=== PATIENT | male | born 1985 | race Caucasian/White ===

== ENCOUNTER 2021-05-03 14:23 | Inpatient (IN) | payer OTHER ==
[~2021-05-03] VITALS: Ht 167.6 cm; Wt 63.6 kg
[2021-05-03 16:59] LABS: BASOPHILS % (AUTO) 0.7 % (0.0-2.0); EOSINOPHILS % (AUTO) 1.1 % (1.0-6.0); HEMATOCRIT 41.6 % (41-53); HEMOGLOBIN 14.2 g/dL (13.5-17.5); LYMPHOCYTES # (AUTO) 1.8 K/uL (1.0-4.8); LYMPHOCYTES % (AUTO) 20.3 % (22.0-44.0); MEAN CORPUSCULAR HEMOGLOBIN 30.6 pg (26.0-34.0); MEAN CORPUSCULAR HGB CONC 34.1 G/dL (31.0-37.0); MEAN CORPUSCULAR VOLUME 90 fL (80-100); MONOCYTES # (AUTO) 0.4 K/uL (0.1-1.0); MONOCYTES % (AUTO) 5.1 % (2.0-9.0); NEUTROPHILS # (AUTO) 6.4 K/uL (1.8-7.7); NEUTROPHILS % (AUTO) 72.8 % (40.0-70.0); PLATELET COUNT (AUTO) 177 K/uL (150-450); RED BLOOD CELL COUNT(AUTO) 4.63 MIL/uL (4.50-5.90); RED CELL DISTRIBUTION WIDTH 13.6 % (11.5-14.5)
[2021-05-03 17:11] LABS: ANION GAP 8 mmol/L (8-16); CALCIUM, TOTAL 9.2 mg/dL (8.8-10.5); CARBON DIOXIDE 32 mmol/L (22-29); CHLORIDE 109 mmol/L (98-107); CREATININE 1.02 mg/dL (0.60-1.30); GLOMERULAR FILTR. RATE CALC > 60 mL/min (>60); GLUCOSE,RANDOM 89 mg/dL (70-110); POTASSIUM 4.2 mmol/L (3.5-5.1); SODIUM SERUM 149 mmol/L (136-145); UREA NITROGEN, BLOOD 9 mg/dL (7-18)
[2021-05-03 17:25] LABS: ALANINE AMINOTRANSFERASE 30 U/L (12-78); ALBUMIN 4.1 g/dL (3.4-5.0); ALKALINE PHOSPHATASE 65 U/L (46-116); ASPARTATE AMINOTRANSFERASE 21 U/L (15-37); BILIRUBIN,TOTAL 0.6 mg/dL (0.1-1.0); TOTAL PROTEIN, SERUM 7.5 g/dL (6.4-8.2)
[2021-05-03 17:41] LABS: COVID AG,FIA SOURCE NASOPHARYNGEAL
[2021-05-03] MEDS ORDERED: INSULIN LISPRO 100 UNITS/ML SQ PRN (18:15)
[2021-05-03] MEDS ORDERED: ACETAMINOPHEN 325 MG TABLET PO PRN (18:15)
[2021-05-03] MEDS ORDERED: ONDANSETRON HCL 4 MG/2 ML VIAL IVP PRN (18:15)
[2021-05-03] MEDS ORDERED: SODIUM CHLORIDE 0.45% 1,000 ML IV ONE (18:15)
[2021-05-03] MEDS ORDERED: DEXTROSE 50%-WATER 25 GM/50 ML SYRINGE IVP PRN (18:15)
[2021-05-03] MEDS ORDERED: MAGNESIUM HYDROXIDE SUSPENSION 30 ML UDCUP PO PRN (18:15)
[2021-05-03] MEDS ORDERED: HALOPERIDOL LACTATE 5 MG/ML VIAL IM PRN (18:15)
[2021-05-03 18:18] VITALS: BP 117/63
[2021-05-03 19:40] VITALS: BP 104/67
[2021-05-04 03:45] VITALS: BP 100/60
[2021-05-04 05:39] LABS: GLUCOMETER DEV NAME(LOC) 6S.1; GLUCOSE,POINT OF CARE 102 MG/DL (70-110)
[2021-05-04 05:52] LABS: GLUCOMETER DEV NAME(LOC) 6N.1; GLUCOSE,POINT OF CARE 87 MG/DL (70-110)
[2021-05-04 08:07] VITALS: BP 101/67
[2021-05-04] MEDS: FAMOTIDINE 20 MG TABLET PO SCH (08:43)
[2021-05-04 09:25] LABS: AMPHET/METH SCREEN,URINE NEGATIVE (NEGATIVE); BARBITURATE SCREEN, URINE NEGATIVE (NEGATIVE); BENZODIAZEPINES SCREEN,URINE NEGATIVE (NEGATIVE); CANNABINOID SCREEN,URINE NEGATIVE (NEGATIVE); COCAINE SCREEN,URINE NEGATIVE (NEGATIVE); METHADONE SCREEN, URINE NEGATIVE (NEGATIVE); OPIATE SCREEN,URINE NEGATIVE (NEGATIVE)
[2021-05-04 09:27] LABS: PHENCYCLIDINE SCREEN,URINE NEGATIVE (NEGATIVE)
[2021-05-04] MEDS ORDERED: DEXTROSE 5%-WATER 500 ML IV ONE (12:30)
[2021-05-04] MEDS: MetFORMIN HCL 500 MG TABLET PO SCH (17:39)
[2021-05-04 20:05] VITALS: BP 103/50
[2021-05-04 20:18] LABS: GLUCOMETER DEV NAME(LOC) 6S.1; GLUCOSE,POINT OF CARE 95 MG/DL (70-110)
[2021-05-04] MEDS: BusPIRone HCL 5 MG TABLET PO SCH (21:09)
[2021-05-04] MEDS: OLANZapine 5 MG TABLET PO SCH (21:09)
[2021-05-04 23:41] LABS: GLUCOMETER DEV NAME(LOC) 6S.1; GLUCOSE,POINT OF CARE 98 MG/DL (70-110)
[2021-05-04 23:41] LABS: GLUCOMETER DEV NAME(LOC) 6N.1; GLUCOSE,POINT OF CARE 84 MG/DL (70-110)
[2021-05-05 04:47] VITALS: BP 96/52
[2021-05-05 06:49] LABS: GLUCOMETER DEV NAME(LOC) 6S.1; GLUCOSE,POINT OF CARE 79 MG/DL (70-110)
[2021-05-05 07:12] LABS: ANION GAP 8 mmol/L (8-16); CALCIUM, TOTAL 9.1 mg/dL (8.8-10.5); CARBON DIOXIDE 30 mmol/L (22-29); CHLORIDE 107 mmol/L (98-107); CREATININE 1.01 mg/dL (0.60-1.30); GLOMERULAR FILTR. RATE CALC > 60 mL/min (>60); GLUCOSE,RANDOM 86 mg/dL (70-110); SODIUM SERUM 145 mmol/L (136-145); UREA NITROGEN, BLOOD 14 mg/dL (7-18)
[2021-05-05 08:16] VITALS: BP 90/52
[2021-05-05] MEDS: OLANZapine 5 MG TABLET PO SCH ×2 (08:25→20:16)
[2021-05-05] MEDS: FAMOTIDINE 20 MG TABLET PO SCH (08:25)
[2021-05-05] MEDS: MetFORMIN HCL 500 MG TABLET PO SCH ×2 (08:25→17:08)
[2021-05-05] MEDS: BusPIRone HCL 5 MG TABLET PO SCH ×2 (08:25→20:16)
[2021-05-05 20:13] VITALS: BP 95/50
[2021-05-05 21:30] LABS: GLUCOMETER DEV NAME(LOC) 6N.1; GLUCOSE,POINT OF CARE 82 MG/DL (70-110)
[2021-05-05 21:30] LABS: GLUCOMETER DEV NAME(LOC) 6S.1; GLUCOSE,POINT OF CARE 98 MG/DL (70-110)
[2021-05-05 21:30] LABS: GLUCOMETER DEV NAME(LOC) 6N.1; GLUCOSE,POINT OF CARE 113 MG/DL (70-110)
[2021-05-06 05:06] VITALS: BP 107/64
[2021-05-06 06:24] LABS: GLUCOMETER DEV NAME(LOC) 6S.1; GLUCOSE,POINT OF CARE 82 MG/DL (70-110)
[2021-05-06 06:48] LABS: ANION GAP 6 mmol/L (8-16); CALCIUM, TOTAL 9.1 mg/dL (8.8-10.5); CARBON DIOXIDE 32 mmol/L (22-29); CHLORIDE 106 mmol/L (98-107); CREATININE 1.01 mg/dL (0.60-1.30); GLOMERULAR FILTR. RATE CALC > 60 mL/min (>60); GLUCOSE,RANDOM 82 mg/dL (70-110); POTASSIUM 4.2 mmol/L (3.5-5.1); SODIUM SERUM 144 mmol/L (136-145); UREA NITROGEN, BLOOD 21 mg/dL (7-18)
[2021-05-06 08:10] VITALS: BP 97/53
[2021-05-06] MEDS: OLANZapine 5 MG TABLET PO SCH ×2 (08:57→19:52)
[2021-05-06] MEDS: BusPIRone HCL 5 MG TABLET PO SCH ×2 (08:57→19:52)
[2021-05-06] MEDS: FAMOTIDINE 20 MG TABLET PO SCH (08:58)
[2021-05-06] MEDS: MetFORMIN HCL 500 MG TABLET PO SCH ×2 (08:58→18:06)
[2021-05-06 12:16] LABS: GLUCOMETER DEV NAME(LOC) 6S.1; GLUCOSE,POINT OF CARE 105 MG/DL (70-110)
[2021-05-06 17:35] LABS: GLUCOMETER DEV NAME(LOC) 6S.1; GLUCOSE,POINT OF CARE 78 MG/DL (70-110)
[2021-05-06 20:15] VITALS: BP 111/70
[2021-05-06 21:14] LABS: GLUCOMETER DEV NAME(LOC) 6S.1; GLUCOSE,POINT OF CARE 92 MG/DL (70-110)
[2021-05-07 05:24] VITALS: BP 103/60
[2021-05-07 06:31] LABS: ANION GAP 6 mmol/L (8-16); CALCIUM, TOTAL 8.9 mg/dL (8.8-10.5); CARBON DIOXIDE 31 mmol/L (22-29); CHLORIDE 106 mmol/L (98-107); CREATININE 0.97 mg/dL (0.60-1.30); GLOMERULAR FILTR. RATE CALC > 60 mL/min (>60); GLUCOSE,RANDOM 91 mg/dL (70-110); POTASSIUM 3.9 mmol/L (3.5-5.1); SODIUM SERUM 143 mmol/L (136-145); UREA NITROGEN, BLOOD 22 mg/dL (7-18)
[2021-05-07 06:53] LABS: GLUCOMETER DEV NAME(LOC) 6S.1; GLUCOSE,POINT OF CARE 94 MG/DL (70-110)
[2021-05-07 07:32] VITALS: BP 106/57
[2021-05-07] MEDS: MetFORMIN HCL 500 MG TABLET PO SCH ×2 (08:57→18:17)
[2021-05-07] MEDS: OLANZapine 5 MG TABLET PO SCH (08:57)
[2021-05-07] MEDS: BusPIRone HCL 5 MG TABLET PO SCH (08:58)
[2021-05-07] MEDS: FAMOTIDINE 20 MG TABLET PO SCH (08:58)
[2021-05-07] MEDS ORDERED: BUSP5TAB20 PO (17:19)
[2021-05-07] MEDS ORDERED: OLAN5TAB52 PO (17:20)
[2021-05-07] MEDS ORDERED: METF-1211 PO (17:20)
[2021-05-07 17:45] LABS: GLUCOMETER DEV NAME(LOC) 6N.1; GLUCOSE,POINT OF CARE 83 MG/DL (70-110)
== END 2021-05-07 18:35 | DRG 641 ==
LOC: EMS 14:23 → 6S 17:59
PROVIDERS: ADMIT Internal Medicine; ATTEND Internal Medicine
DX: E87.0 Hyperosmolality and hypernatremia (principal); F31.4 Bipolar disorder, current episode depressed, severe, without psychotic features; E11.9 Type 2 diabetes mellitus without complications; F31.9 Bipolar disorder, unspecified; J45.909 Unspecified asthma, uncomplicated; Z20.822 Contact with and (suspected) exposure to COVID-19; F25.0 Schizoaffective disorder, bipolar type; Z87.891 Personal history of nicotine dependence; Z91.51 Personal history of suicidal behavior; Z79.899 Other long term (current) drug therapy
CPT/HCPCS: 80048; 80053; 80307; 82962; 85025; 97162; 99285; G0480; J7060